=== PATIENT | male | born 1970 | race Caucasian/White ===

== ENCOUNTER → 2022-10-23 | Outpatient (CLI) | payer OTHER ==
--- NOTE | 2022-10-23 16:58 | XR ---
EXAMINATION TYPE: XR knee 4V bilateral DATE OF EXAM: 10/23/2022 COMPARISON: None HISTORY: Pain TECHNIQUE: Bilateral knees are examined in 3 projections each. FINDINGS: Patellofemoral joint spaces appear preserved. Mild narrowing of the right medial lateral co mpartment joint space is present. Mild narrowing of the left medial lateral compartment joint spaces is present. Some left lateral femoral condylar spurring is present. No joint effusions are evident. Follow up exams can be performed 7-10 days from acute trauma for continued pain. IMPRESSION: 1. Mild diffuse joint space changes. 2. No acute osseous abnormalities bilateral knees
== END | disposition home or self-care (01) ==
LOC: RADXRMAIN 15:01
PROVIDERS: ATTEND Nurse Practitioner Family
DX: M25.562 Pain in left knee (principal); M25.561 Pain in right knee